=== PATIENT | female | born 1950 | race Caucasian/White ===

== ENCOUNTER 2018-04-11 13:21 | Outpatient (CLI) | payer BC ==
[2018-04-11 13:39] LABS: BASOPHILS # (AUTO) 0.1 10^3/uL (0.0-0.1); BASOPHILS % (AUTO) 0.9 %; EOSINOPHILS # (AUTO) 0.1 10^3/uL (0.0-0.7); EOSINOPHILS % (AUTO) 1.3 %; LYMPHOCYTES # (AUTO) 1.8 10^3/uL (1.5-3.5); LYMPHOCYTES % (AUTO) 22.2 %; MEAN CORPUSCULAR HEMOGLOBIN 31.5 pg (27.0-31.0); MEAN CORPUSCULAR HGB CONC 34.6 g/dL (32.0-36.0); MEAN CORPUSCULAR VOLUME 91.2 fL (81.0-99.0); MEAN PLATELET VOLUME 7.6 fL (7.9-10.8); MONOCYTES # (AUTO) 0.7 10^3/uL (0.0-1.0); MONOCYTES % (AUTO) 8.4 %; NEUTROPHILS # (AUTO) 5.6 10^3/uL (1.5-6.6); NEUTROPHILS % (AUTO) 67.2 %; PLT - PLATELET COUNT 271 10^3/uL (130-450); RED BLOOD COUNT 5.06 10^6/uL (4.20-5.40); RED CELL DISTRIBUTION WIDTH 13.5 % (12.0-15.0); WHITE BLOOD COUNT 8.3 x10^3/uL (4.8-10.8)
[2018-04-11 13:52] LABS: ALBUMIN 4.3 g/dL (3.2-5.5); ALBUMIN/GLOBULIN RATIO 1.2 (1.0-2.2); ALKALINE PHOSPHATASE 95 IU/L (42-121); ALT ALANINE AMINOTRANSFERASE 19 IU/L (10-60); AST ASPARTATE AMINOTRANSFERASE 23 IU/L (10-42); BILIRUBIN,TOTAL 0.7 mg/dL (0.2-1.0); BUN - BLOOD UREA NITROGEN 14 mg/dL (6-20); CALCIUM 8.8 mg/dL (8.5-10.3); CARBON DIOXIDE - CO2 25 mmol/L (21-32); CHLORIDE 96 mmol/L (101-111); CHOL/HDL RATIO 3.8 (<4.4); CHOLESTEROL 173 mg/dL; CREATININE 0.5 mg/dL (0.4-1.0); GFR - MDRD 122 (>89); GLUCOSE 124 mg/dL (70-100); HDL CHOLESTEROL 46 mg/dL; LDL CHOLESTEROL,CALCULATED 99 mg/dL; LDL/HDL RATIO 2.2 (<4.4); SODIUM 130 mmol/L (135-145); TOTAL PROTEIN 7.8 g/dL (6.7-8.2); VLDL CHOLESTEROL 28 mg/dL
== END 2018-04-11 13:22 | disposition home or self-care (01) ==
LOC: LAB 13:21
PROVIDERS: ATTEND Specialist
DX: Z12.11 Encounter for screening for malignant neoplasm of colon (principal); Z13.6 Encounter for screening for cardiovascular disorders; Z72.89 Other problems related to lifestyle
CPT/HCPCS: 36415; 80053; 80061; 83721; 85025; 87902

== ENCOUNTER 2018-04-13 06:18 | Day surgery (SDC) | payer BC ==
[2018-04-13] MEDS ORDERED: PHENYLEPHRINE 2.5% OPHTH 2 ML DROPS ONE (06:25)
[2018-04-13] MEDS ORDERED: KETOROLAC 0.45% OPHTH DROPS ONE (06:25)
[2018-04-13] MEDS ORDERED: PROPARACAINE 0.5% OPHTH DROPS 15 ML ONE (06:26)
[2018-04-13] MEDS ORDERED: CYCLOPENTOLATE 1% OPHTH DROPS 2 ML ONE (06:26)
[2018-04-13] MEDS ORDERED: LACTATED RINGERS 1,000 ML IV ONE (06:34)
[2018-04-13] MEDS ORDERED: PHENYLEPHRINE 2.5% OPHTH 2 ML DROPS RIGHTEYE ONE (06:35)
[2018-04-13] MEDS ORDERED: CYCLOPENTOLATE 1% OPHTH DROPS 2 ML RIGHTEYE ONE (06:35)
[2018-04-13] MEDS ORDERED: PROPARACAINE 0.5% OPHTH DROPS 15 ML RIGHTEYE ONE ×2 (06:35→07:34)
[2018-04-13] MEDS ORDERED: KETOROLAC 0.45% OPHTH DROPS RIGHTEYE ONE (06:35)
--- NOTE | 2018-04-13 07:06 | ANESTHESIA ---
Pre-Anesthesia VS, & Labs - Diagnosis Right eye senile cataract - Procedure Right eye extraction of cataract with IOL implant Vital Signs: Temp Pulse Resp BP Pulse Ox 36.3 C L 82 16 132/64 H 93 04/13/18 06:35 04/13/18 06:35 04/13/18 06:35 04/13/18 06:35 04/13/18 06:35 Height 5 ft 3 in Weight (kg) 77.3 kg - NPO >8 hours - Is Patient ?: No - Lab Results Current Lab Results: Laboratory Tests 04/13/18 06:54: POC Whole Bld Glucose 150 H Home Medications and Allergies Home Medications: Ambulatory Orders Aspirin 81 mg PO DAILY 04/13/18 Escitalopram Oxalate 20 mg PO DAILY 04/13/18 Levalbuterol [Xopenex] 200 puffs INH PRN PRN 04/13/18 Losartan Potassium 100 mg PO DAILY 04/13/18 Lovastatin 10 mg PO DAILY 04/13/18 hydroCHLOROthiazide [Hydrochlorothiazide] 25 mg PO DAILY 04/13/18 metFORMIN [Glucophage] 500 mg PO DAILY 04/13/18 Aspirin 81 mg PO DAILY 04/13/18 Escitalopram Oxalate 20 mg PO DAILY 04/13/18 Levalbuterol [Xopenex] 200 puffs INH PRN PRN 04/13/18 Losartan Potassium 100 mg PO DAILY 04/13/18 Lovastatin 10 mg PO DAILY 04/13/18 hydroCHLOROthiazide [Hydrochlorothiazide] 25 mg PO DAILY 04/13/18 metFORMIN [Glucophage] 500 mg PO DAILY 04/13/18 Allergies/Adverse Reactions: Allergies Allergy/AdvReac Type Severity Reaction Status Date / Time nitrofurantoin Allergy Rash Verified 04/13/18 06:45 [From Macrodantin] tiotropium Allergy Rash Verified 04/13/18 06:45 [From Spiriva with HandiHaler] albuterol Allergy Dizziness Uncoded 04/13/18 06:45 Anes History & Medical History - Anesthetic History Anesthesia Complications: reports: No previous complications - Medical History Cardiovascular: reports: Hypertension, High cholesterol, Other Pulmonary: reports: COPD, Other (Uses oxygen at night) Gastrointestinal: reports: GERD (controlled with medication) Urinary: reports: None Neuro: reports: None Musculoskeletal: reports: Osteoarthritis Endocrine/Autoimmune: reports: Type 2 diabetes Blood Disorders: reports: None Skin: reports: Rosacea Smoking Status: Current every day smoker (1pk/day for 50 years) Psychosocial: reports: Depression, Anxiety, Alcohol (1-2 drinks per day) - Surgical History Gynecologic: Hysterectomy Exam General: Alert, Oriented x3, Cooperative, No acute distress Mouth Openin Fingerbreadth Neck Mobility: Normal Mallampati classification: II Thyromental Distance: 4-6 cm Respiratory: Lungs clear, Normal breath sounds, No respiratory distress, No accessory muscle use Cardiovascular: Regular rate, Normal S1, Normal S2, No murmurs Mental/Cognitive Status: Alert/Oriented X3, Normal for patient Cognitive Status: Within normal limits Plan Anesthesia Type: MAC Consent for Procedure(s) Verified and Reviewed: Yes Code Status: Attempt Resuscitation ASA classification: 3-Severe systemic disease Is this case an emergency?: No
[2018-04-13] MEDS ORDERED: EPINEPHrine 1 MG/ML AMP ONE (07:10)
[2018-04-13] MEDS ORDERED: TIMOLOL 0.5% OPHTH DROPS ONE (07:11)
[2018-04-13] MEDS ORDERED: TRIAMCIN/MOXIFLOX OPHTHALMIC 0.6 ML VIAL IO ONE (07:11)
[2018-04-13] MEDS ORDERED: BRIMONIDINE 0.2% OPHTH DROPS 5 ML ONE (07:11)
[2018-04-13] MEDS ORDERED: BSS/LIDOCAINE/EPINEPHRINE 1 ML SYRINGE ONE (07:12)
[2018-04-13] MEDS ORDERED: VANCOMYCIN OPHTHALMI 8MG/0.8ML 8 MG/0.8 ML SYRINGE IO ONE (07:12)
[2018-04-13] MEDS ORDERED: EPINEPHrine 1 MG/ML AMP IVP ONE (07:33)
[2018-04-13] MEDS ORDERED: BRIMONIDINE 0.2% OPHTH DROPS 5 ML OPTH ONE (07:33)
[2018-04-13] MEDS ORDERED: TIMOLOL 0.5% OPHTH DROPS OPTH ONE (07:33)
[2018-04-13] MEDS ORDERED: CHONDR SULF/HYALURONATE SYRINGE IO ONE (07:33)
[2018-04-13] MEDS ORDERED: BSS/LIDOCAINE/EPINEPHRINE 1 ML SYRINGE IO ONE (07:34)
[2018-04-13] MEDS ORDERED: MIDAZOLAM 2 MG/2 ML VIAL IVP ONE (07:45)
[2018-04-13] MEDS ORDERED: KETOROLAC 15 MG/ML VIAL ONE (08:08)
[2018-04-13 08:28] VITALS: BP 124/72
--- NOTE | 2018-04-13 09:45 | OPERATIVE REPORT ---
DATE OF SERVICE: 04/13/2018 Physician: Kamron Ferrari MD PREOPERATIVE DIAGNOSIS: Visually significant cataract, right eye. This was her first cataract surgery. POSTOPERATIVE DIAGNOSIS: Visually significant cataract, right eye. PROCEDURE: Phacoemulsification with posterior chamber intraocular lens implant, right eye, with laser assist. SURGEON: Dr. Kamron Ferrari. ANESTHESIA: Monitored anesthesia care. COMPLICATIONS: None. OPERATIVE INDICATIONS: This is a 68-year-old woman with progressive vision loss in the right eye due to a 3+ nuclear sclerotic cataract. Best corrected visual acuity was 20/100 with glare count fingers vision at 4 feet in the right eye. Indications for surgery were overall decrease in vision, difficulty seeing words on a computer screen, difficulty reading, difficulty seeing words, closed captions or game scores on TV, difficulty seeing street signs, difficulty driving in low light or at night, difficulty driving at night because of the headlights from other vehicles and/or street lights, and difficulty with glare or bright lights in any situation. She was consented at length concerning risks and benefits of cataract surgery, after which she expressed a desire to proceed with surgery. OPERATIVE PROCEDURE: Patient was taken into OR #3 and placed under monitored anesthesia care. A surgical timeout was conducted confirming correct patient, correct procedure, and correct surgical site. She was placed on the LenSx laser and her eye docked to the laser interface. The laser performed a capsulotomy, lens softening, phaco wounds and arcuate keratotomy incisions. She was then moved to the operating microscope, given topical anesthesia, then prepped and draped in the usual sterile fashion. The eye was entered at the 12 and 9 o'clock positions. Intracameral Shugarcaine was injected into the anterior chamber, followed by Viscoat. The capsulorrhexis flap created by the LenSx laser was removed from the anterior chamber. The nucleus was hydrodissected and phacoemulsified. The cortex was evacuated using automated infusion and aspiration. Provisc was injected in the capsular bag, and a 22.0 diopter intraocular lens inserted in the bag. Approximately 0.8 mL of a mixture of triamcinolone, moxifloxacin and vancomycin was injected subconjunctivally in the superior quadrant for infection and inflammation prophylaxis. I/A was used to evacuate the viscoelastic materials. The eye was inflated to physiologic pressure using a balanced salt solution and found to be watertight. Patient was taken from the operating room in good condition and postop instructions. TD: 04/13/2018 08:50 MICAELA
== END 2018-04-13 06:19 | disposition home or self-care (01) ==
LOC: SDS 06:18
PROVIDERS: ATTEND Ophthalmology
PROC: 08RJ3JZ Replacement of Right Lens with Synthetic Substitute, Percutaneous Approach (ICD-10-PCS; principal; 2018-04-13 07:30)
DX: H25.11 Age-related nuclear cataract, right eye (principal); J44.9 Chronic obstructive pulmonary disease, unspecified; I10 Essential (primary) hypertension; G47.33 Obstructive sleep apnea (adult) (pediatric); Z99.81 Dependence on supplemental oxygen; E78.00 Pure hypercholesterolemia, unspecified; K21.9 Gastro-esophageal reflux disease without esophagitis; E11.9 Type 2 diabetes mellitus without complications; F17.210 Nicotine dependence, cigarettes, uncomplicated; F41.9 Anxiety disorder, unspecified; F32.9 Major depressive disorder, single episode, unspecified
CPT/HCPCS: 66984; A9270; J3490; J7120; V2632

== ENCOUNTER 2018-10-05 08:05 | Day surgery (SDC) | payer BC ==
[~2018-10-05 08:05] MED LIST: BRIMONIDINE 0.2% OPHTH DROPS 5 ML ONE; BSS/LIDOCAINE/EPINEPHRINE 1 ML SYRINGE ONE; CYCLOPENTOLATE 1% OPHTH DROPS 2 ML ONE; KETOROLAC 0.45% OPHTH DROPS ONE; PHENYLEPHRINE 2.5% OPHTH 2 ML DROPS ONE; PROPARACAINE 0.5% OPHTH DROPS 15 ML ONE; TIMOLOL 0.5% OPHTH DROPS ONE; TRIAMCIN/MOXIFLOX OPHTHALMIC 0.6 ML VIAL IO ONE; VANCOMYCIN OPHTHALMI 8MG/0.8ML 8 MG/0.8 ML SYRINGE IO ONE
[2018-10-05] MEDS ORDERED: PHENYLEPHRINE 2.5% OPHTH 2 ML DROPS LEFTEYE ONE (08:15)
[2018-10-05] MEDS ORDERED: KETOROLAC 0.45% OPHTH DROPS LEFTEYE ONE (08:15)
[2018-10-05] MEDS ORDERED: PROPARACAINE 0.5% OPHTH DROPS 15 ML LEFTEYE ONE ×2 (08:15→08:45)
[2018-10-05] MEDS ORDERED: CYCLOPENTOLATE 1% OPHTH DROPS 2 ML LEFTEYE ONE (08:15)
[2018-10-05] MEDS ORDERED: LACTATED RINGERS 500 ML IV ONE (08:20)
--- NOTE | 2018-10-05 08:30 | ANESTHESIA ---
Pre-Anesthesia VS, & Labs - Diagnosis left nuclear sclerotic cataract - Procedure left cataract extraction with IOL Vital Signs: Temp Pulse Resp BP Pulse Ox 36.9 C 97 18 155/70 H 92 10/05/18 08:12 10/05/18 08:12 10/05/18 08:12 10/05/18 08:12 10/05/18 08:12 Height 5 ft 3 in Weight (kg) 78.5 kg - NPO >8 hours - Is Patient ?: No Home Medications and Allergies Home Medications: Ambulatory Orders ALPRAZolam [Alprazolam] 0.5 mg PO DAILY 10/04/18 Aclidinium [place] [Tudorza Pressair] 400 mcg IH DAILY 10/04/18 Omeprazole 40 mg PO DAILY 10/04/18 Aspirin 81 mg PO DAILY 04/13/18 Escitalopram Oxalate 20 mg PO DAILY 04/13/18 Levalbuterol [Xopenex] 200 puffs INH PRN PRN 04/13/18 Losartan Potassium 100 mg PO DAILY 04/13/18 Lovastatin 10 mg PO DAILY 04/13/18 hydroCHLOROthiazide [Hydrochlorothiazide] 25 mg PO DAILY 04/13/18 metFORMIN [Glucophage] 500 mg PO DAILY 04/13/18 ALPRAZolam [Alprazolam] 0.5 mg PO DAILY 10/04/18 Aclidinium [place] [Tudorza Pressair] 400 mcg IH DAILY 10/04/18 Omeprazole 40 mg PO DAILY 10/04/18 Allergies/Adverse Reactions: Allergies Allergy/AdvReac Type Severity Reaction Status Date / Time nitrofurantoin Allergy Rash Verified 04/13/18 06:45 [From Macrodantin] tiotropium Allergy Rash Verified 04/13/18 06:45 [From Spiriva with HandiHaler] albuterol Allergy Dizziness Uncoded 04/13/18 06:45 Anes History & Medical History - Anesthetic History Anesthesia Complications: reports: No previous complications - Medical History Cardiovascular: reports: Hypertension, High cholesterol, Other Pulmonary: reports: COPD, Other Gastrointestinal: reports: GERD Urinary: reports: None Neuro: reports: None Musculoskeletal: reports: Osteoarthritis Endocrine/Autoimmune: reports: Type 2 diabetes Blood Disorders: reports: None Skin: reports: Rosacea Smoking Status: Current every day smoker (1pk/day for 50 years) - Surgical History Gynecologic: Hysterectomy Exam General: Alert Dental: WNL, Partials Upper Mouth Opening: Greater than 4 Fingerbreadths Mallampati classification: II Thyromental Distance: greater than 6 cm Plan Anesthesia Type: General Consent for Procedure(s) Verified and Reviewed: Yes Code Status: Attempt Resuscitation ASA classification: 2-Mild systemic disease Is this case an emergency?: No
[2018-10-05] MEDS ORDERED: BRIMONIDINE 0.2% OPHTH DROPS 5 ML OPTH ONE (08:55)
[2018-10-05] MEDS ORDERED: CHONDR SULF/HYALURONATE SYRINGE IO ONE (08:55)
[2018-10-05] MEDS ORDERED: EPINEPHrine 1 MG/ML AMP IVP ONE (08:55)
[2018-10-05] MEDS ORDERED: TIMOLOL 0.5% OPHTH DROPS OPTH ONE (08:56)
[2018-10-05] MEDS ORDERED: BSS/LIDOCAINE/EPINEPHRINE 1 ML SYRINGE IO ONE ×2 (08:56)
[2018-10-05] MEDS ORDERED: VANCOMYCIN OPHTHALMI 8MG/0.8ML 8 MG/0.8 ML SYRINGE IO ONE (08:57)
[2018-10-05] MEDS ORDERED: TRIAMCIN/MOXIFLOX OPHTHALMIC 0.6 ML VIAL IO ONE ×2 (08:58)
[2018-10-05] MEDS ORDERED: MIDAZOLAM 2 MG/2 ML VIAL IVP ONE (09:00)
[2018-10-05] MEDS ORDERED: LIDOCAINE-MPF 2% 5 ML VIAL IM ONE (09:00)
[2018-10-05] MEDS ORDERED: fentaNYL 100 MCG/2 ML VIAL IVP ONE (09:00)
[2018-10-05 09:25] VITALS: BP 128/57
--- NOTE | 2018-10-05 11:21 | OPERATIVE REPORT ---
DATE OF SERVICE: 10/05/2018 Physician: Kamron Ferrari MD PREOPERATIVE DIAGNOSIS: Visually significant cataract, left eye. Cataract surgery was performed on the right eye on 04/13/2018. POSTOPERATIVE DIAGNOSIS: Visually significant cataract, left eye. Cataract surgery was performed on the right eye on 04/13/2018. PROCEDURE: Phacoemulsification with posterior chamber intraocular lens implant, left eye. SURGEON: Kamron Ferrari MD ANESTHESIA: Monitored anesthesia care. COMPLICATIONS: None. OPERATIVE INDICATIONS: This is a 68-year-old woman with progressive vision loss in the left eye due to 3+ nuclear sclerotic cataract. Best corrected visual acuity was 20/40, with glare to 20/60 in the left eye. Indications for surgery are overall decrease in vision, difficulty driving in low light o r at night, difficulty driving at night because of headlights from other vehicles, and difficulty wit h glare or bright lights in any situation. She was consented at length concerning the risks and bene fits of cataract surgery, after which she expressed a desire to proceed with surgery. OPERATIVE PROCEDURE: The patient was taken to OR #3 and placed under monitored anesthesia care. A s urgical timeout was conducted confirming the correct patient, correct procedure, and correct surgical site. She was given topical anesthesia, then prepped and draped in the usual sterile fashion. The eye was entered at the 6 and 3 o'clock positions. Intracameral Shugarcaine was injected into the ant erior chamber, followed by Viscoat. A continuous-tear curvilinear capsulorrhexis was performed. The nucleus was hydrodissected and phacoemulsified. The cortex was evacuated using automated infusion a nd aspiration. Provisc was injected into the capsular bag, and a 21.0 diopter intraocular lens was i nserted into the bag. Approximately 0.8 mL mixture of triamcinolone, moxifloxacin, and vancomycin wa s injected subconjunctivally in the superior quadrant for infection and inflammation prophylaxis. I and A was used to evacuate the viscoelastic materials. The eye was inflated to physiologic pressure using balanced salt solution and found to be watertight. The patient was taken from the operating ro om in good condition and given postoperative instructions. TD: 10/05/2018 09:19
== END 2018-10-05 08:06 | disposition home or self-care (01) ==
LOC: SDS 08:05
PROVIDERS: ATTEND Ophthalmology
PROC: 08RK3JZ Replacement of Left Lens with Synthetic Substitute, Percutaneous Approach (ICD-10-PCS; principal; 2018-10-05 09:00)
DX: H25.12 Age-related nuclear cataract, left eye (principal); J44.9 Chronic obstructive pulmonary disease, unspecified; I10 Essential (primary) hypertension; E11.9 Type 2 diabetes mellitus without complications; F17.210 Nicotine dependence, cigarettes, uncomplicated
CPT/HCPCS: 66984; A9270; J3490; V2632

== ENCOUNTER 2019-05-29 12:42 | Outpatient (CLI) | payer BC ==
--- NOTE | 2019-05-31 09:17 | DEXA Report ---
Reason: SCREEN FOR OSTEPOROSIS, POSTMENOPAUSAL Procedure Date: 05/29/2019 Accession Number: [id number] / [id number] Procedure: DEX - Dexa Spine and/or Hip CPT Code: Final Report FULL RESULT: EXAM: Dexa Spine and/or Hip DATE: 05/29/2019 1:04 PM CLINICAL HISTORY: SCREEN FOR OSTEPOROSIS, POSTMENOPAUSAL TECHNIQUE: Dual energy x-ray absorptiometry (DXA) was performed on a Nagi System. Regions measured are the AP Spine, femoral neck, and if needed forearm. COMPARISON: None. In accordance with the International Society for Clinical Densitometry (ISCD) guidelines, data from previous exams may be reanalyzed using current recommendations and techniques. This is done to allow a more accurate basis for comparison with the current study. FINDINGS: The data for the lumbar spine is as follows: BMD (g/cm/cm) T-SCORE Z-SCORE REGION L1 0.850 -2.3 -1.2 L2 0.990 -1.7 -0.6 L3 0.986 -1.8 -0.7 L4 1.130 -0.6 0.5 TOTAL 0.997 -1.5 -0.4 NOTE: All evaluable vertebrae are used for classification The data for the hip is as follows: BMD (g/cm/cm) T-SCORE Z-SCORE REGION Neck 0.769 -1.9 -0.6 TOTAL 0.808 -1.6 -0.5 NOTE: The femoral neck or total proximal femur, whichever is lowest, is used for classification. IMPRESSION: THE WHO CLASSIFICATION BASED ON THE INTERNATIONAL REFERENCE STANDARD IS OSTEOPENIA. THE FRACTURE RISK IS INCREASED. RECOMMENDATION: Patients with diagnosis of osteoporosis or osteopenia should have regular bone mineral density assessment. For those eligible for Medicare, routine testing is allowed once every 2 years. Testing frequency can be increased for patients who have rapidly progressing disease or for those who are receiving medical therapy to restore bone mass. COMMENT: World Health Organization (WHO) definitions for osteoporosis and osteopenia: NORMAL BMD: T-score at -1.0 or higher, fracture risk is low OSTEOPENIA BMD: T-score between -1.0 and -2.5, fracture risk is increased. OSTEOPOROSIS BMD: T-score at -2.5 or lower, fracture risk is high. National Osteoporosis Foundation recommends: 1. Obtain adequate dietary calcium (at least 1200 mg per day) and vitamin D (400-800 international units per day). 2. Participate, as appropriate, in regular weightbearing and muscle-strengthening exercise. 3. Avoid tobacco use and reduce alcohol and caffeine intake. 4. For more detailed information see the website at www.NOF.org.
== END 2019-05-29 12:43 | disposition home or self-care (01) ==
LOC: DI 12:42
PROVIDERS: ATTEND Internal Medicine
DX: Z13.820 Encounter for screening for osteoporosis (principal); M85.89 Other specified disorders of bone density and structure, multiple sites; N95.8 Other specified menopausal and perimenopausal disorders
CPT/HCPCS: 77080

== ENCOUNTER 2019-05-29 12:43 | Outpatient (CLI) | payer BC ==
--- NOTE | 2019-05-31 09:06 | Mammography Report ---
Reason: ROUTINE MAMMO Procedure Date: 05/29/2019 Accession Number: [id number] / [id number] Procedure: WEST - Screening Mammo w/Celso CPT Code: Final Report FULL RESULT: EXAM: Screening Mammo w/Celso DATE: 05/29/2019 1:33 PM CLINICAL HISTORY: Screening encounter. TECHNIQUE: (B) - Bilateral CC and MLO views were obtained. COMPARISON: 04/05/2017 through 10/14/2009. PARENCHYMAL PATTERN: (A) - The breast(s) demonstrate(s) scattered fibroglandular densities. FINDINGS: There are no suspicious masses, calcifications, or areas of distortion. IMPRESSION: Negative examination. BI-RADS category 1. RECOMMENDATION: (ANNUAL) - Recommend routine annual screening mammography. BI-RADS CATEGORY: (1) - Negative. STANDARD QUALIFYING STATEMENTS: 1. This examination was not reviewed with the aid of Computer-Aided Detection (CAD). 2. A negative or benign imaging report should not preclude biopsy if clinically suspicious findings are present. 3. Dense breasts may obscure an underlying neoplasm. 4. This examination was reviewed with the aid of 3D breast imaging (tomosynthesis).
== END 2019-05-29 12:44 | disposition home or self-care (01) ==
LOC: DI 12:43
PROVIDERS: ATTEND Internal Medicine
DX: Z12.31 Encounter for screening mammogram for malignant neoplasm of breast (principal)
CPT/HCPCS: 77063; 77067

== ENCOUNTER 2019-08-22 17:02 | Outpatient (CLI) | payer BC | END 2019-08-22 17:03 | disposition home or self-care (01) | LOC: COV 17:02 | PROVIDERS: ATTEND Family Medicine | DX: R50.9 Fever, unspecified (principal) ==

== ENCOUNTER 2019-08-26 07:49 | Inpatient (IN) | payer MEDICARE, BC ==
[2019-08-26] MEDS ORDERED: SODIUM CHLORIDE 0.9% 1,000 ML IV ONE ×3 (08:17→09:42)
[2019-08-26] MEDS ORDERED: LEVALBUTEROL 1.25 MG/3 ML NEB INH ONE (08:19)
--- NOTE | 2019-08-26 08:21 | ED Physician Documentation ---
PD HPI DYSPNEA - Stated complaint Stated Complaint: C+ SHORTNESS OF AIR - History obtained from History obtained from: Patient - History of Present Illness Timing - onset: How many days ago (5-6) Timing - onset during: Rest, Light activity (Initially just having dyspnea with light activity. She has become more consistently short of breath last couple of days. Last night into today she states "I feel like I am drowning". She does have history of COPD and uses rescue inhaler at times but no consistent beta agonists. She is allergic to albuterol that gives her jitteriness. She was tested positive for coded and then been at home. She typically uses oxygen just at night at 2 L. She has been on it consistently the last day and a half. Her oximetry at home is baseline 93 to 95% and had been recently in the upper 80s. This morning she noted it to be in the upper 70s.) Timing - duration: Days Timing - details: Gradual onset, Still present (worse the past day) Inciting event(s): URI, Other (she is still a smoker). No: Out of meds Improved by: O2, Rest. No: Inhaler/neb Worsened by: Exertion, Coughing Associated symptoms: Fever, Cough, Wheezing. No: Hemoptysis, Bilateral edema Similar symptoms before: Diagnosis (COPD) Recently seen: Clinic Review of Systems Constitutional: reports: Fever, Chills, Myalgias Nose: reports: Congestion. denies: Rhinorrhea / runny nose Throat: denies: Sore throat Cardiac: reports: Pedal edema. denies: Chest pain / pressure, Palpitations, Calf pain Respiratory: reports: Dyspnea, Cough, Wheezing GI: reports: Nausea (poor oral intake for few days). 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 - Present Medications Home Medications: Ambulatory Orders Medication Instructions Recorded Confirmed Aspirin 81 mg PO DAILY 04/13/18 08/26/19 Escitalopram Oxalate 20 mg PO DAILY 04/13/18 08/26/19 Levalbuterol [Xopenex] 200 puffs INH PRN PRN 04/13/18 08/26/19 Losartan Potassium 100 mg PO DAILY 04/13/18 08/26/19 Lovastatin 10 mg PO DAILY 04/13/18 08/26/19 hydroCHLOROthiazide 25 mg PO DAILY 04/13/18 08/26/19 [Hydrochlorothiazide] metFORMIN [Glucophage] 500 mg PO DAILY 04/13/18 08/26/19 ALPRAZolam [Alprazolam] 0.5 mg PO DAILY 10/04/18 08/26/19 Aclidinium [place] [Tudorza 400 mcg IH DAILY 10/04/18 08/26/19 Pressair] Omeprazole 40 mg PO DAILY 10/04/18 08/26/19 - Allergies Allergies/Adverse Reactions: Allergies Allergy/AdvReac Type Severity Reaction Status Date / Time nitrofurantoin Allergy Rash Verified 08/26/19 08:53 [From Macrodantin] tiotropium Allergy Rash Verified 08/26/19 08:53 [From Spiriva with HandiHaler] albuterol Allergy Dizziness Uncoded 08/26/19 08:53 - Living Situation Living Situation: reports: With spouse/s.o. Living Arrangement: reports: At home - Social History Smoking Status: Current every day smoker (1pk/day for 50 years) Does the pt drink ETOH?: No Does the pt have substance abuse?: No - POLST Patient has POLST: Yes POLST Status: Full Code PD ED PE NORMAL - Vitals Vital signs reviewed: Yes - General General: Alert and oriented X 3, Well developed/nourished, Other (She appears in distress with labored breathing and tachypnea. Oxygenation is low in the 79%. Blood pressure is also low at 82 systolic) - HEENT HEENT: Pharynx benign. No: Moist mucous membranes - Neck Neck: Supple, no meningeal sign, No JVD, No bruit - Cardiac Cardiac: No murmur - Respiratory Respiratory: Other (She has prolonged expiratory phase with accessory muscle use and partial sentence dyspnea. She does appear a bit anxious.). No: Clear bilaterally (Diffuse wheezing and prolonged expiratory phase. There are some coarse sounds diffusely as well.) - Abdomen Abdomen: Soft, Non tender - Derm Derm: Normal color, Warm and dry - Extremities Extremities: No deformity, No tenderness to palpate - Neuro Neuro: Alert and oriented X 3, No motor deficit, Normal speech Eye Opening: Spontaneous Motor: Obeys Commands Verbal: Oriented GCS Score: 15 Results - Vitals Vitals: Vital Signs - 24 hr 08/26/19 08/26/19 08/26/19 07:55 08:17 08:30 Temperature 36.6 C Heart Rate 82 114 H 113 H Respiratory 32 H 24 25 H Rate Blood Pressure 90/48 L 71/52 L 88/50 L O2 Saturation 76 L 82 L 82 L 08/26/19 08/26/19 08/26/19 08:47 08:54 09:00 Temperature Heart Rate 113 H 114 H 111 H Respiratory 25 H 25 H 24 Rate Blood Pressure 80/49 L 91/49 L 95/67 O2 Saturation 86 L 86 L 88 L 08/26/19 08/26/19 08/26/19 09:15 09:30 09:44 Temperature Heart Rate 105 H 90 88 Respiratory 11 L 20 17 Rate Blood Pressure 89/75 L 47/33 L 53/37 L O2 Saturation 90 L 79 L 83 L 08/26/19 08/26/19 08/26/19 09:52 09:58 10:03 Temperature Heart Rate 94 99 102 H Respiratory 18 20 Rate Blood Pressure 65/38 L 57/43 L O2 Saturation 88 L 88 L Oxygen O2 Source Mechanical ventilator Oxygen Flow Rate 15 - Labs Labs: Laboratory Tests 08/26/19 08/26/19 08/26/19 08:15 08:15 08:15 WBC 5.6 RBC 4.99 Hgb 16.1 H Hct 45.4 MCV 91.0 MCH 32.3 H MCHC 35.5 RDW 13.2 Plt Count 295 MPV 10.5 Neut # (Auto) Not Reportable Lymph # (Auto) Not Reportable [place] # (Auto) Not Reportable Eos # (Auto) Not Reportable Baso # (Auto) Not Reportable Absolute Nucleated RBC Not Reportable Total Counted 100 Band Neuts % (Manual) 40 H Abnorm Lymph % (Manual) 0 Metamyelocytes % 6 H Myelocytes % 5 H Nucleated RBC % Not Reportable Neutrophils # (Manual) 4.6 Lymphocytes # (Manual) 0.3 L Monocytes # (Manual) 0.1 Eosinophils # (Manual) 0.0 Basophils # (Manual) 0.0 Differential Comment MANUAL DIFFERENTIAL Manual Slide Review Indicated WBC Morphology 2+ TOXIC GRANULATION Platelet Estimate NORMAL (130-450,000) Platelet Morphology NORMAL APPEARANCE RBC Morph Micro Appear NORMAL APPEARANCE D-Dimer > 1050.0 H Sodium 131 L Potassium 3.2 L Chloride 92 L Carbon Dioxide 22 Anion Gap 17.0 H BUN 99 H* Creatinine 2.9 H Estimated GFR (MDRD) 16 L Glucose 103 H Calcium 8.5 Magnesium 2.3 Total Bilirubin 0.9 AST 120 H ALT 53 Alkaline Phosphatase 60 B-Natriuretic Peptide Total Protein 7.6 Albumin 3.1 L Globulin 4.5 H Albumin/Globulin Ratio 0.7 L Lipase 21 L 08/26/19 08:15 WBC RBC Hgb Hct MCV MCH MCHC RDW Plt Count MPV Neut # (Auto) Lymph # (Auto) [place] # (Auto) Eos # (Auto) Baso # (Auto) Absolute Nucleated RBC Total Counted Band Neuts % (Manual) Abnorm Lymph % (Manual) Metamyelocytes % Myelocytes % Nucleated RBC % Neutrophils # (Manual) Lymphocytes # (Manual) Monocytes # (Manual) Eosinophils # (Manual) Basophils # (Manual) Differential Comment Manual Slide Review WBC Morphology Platelet Estimate Platelet Morphology RBC Morph Micro Appear D-Dimer Sodium Potassium Chloride Carbon Dioxide Anion Gap BUN Creatinine Estimated GFR (MDRD) Glucose Calcium Magnesium Total Bilirubin AST ALT Alkaline Phosphatase B-Natriuretic Peptide 115 H Total Protein Albumin Globulin Albumin/Globulin Ratio Lipase - Rads (name of study) chest xray Radiology: Prelim report reviewed, See rad report Procedures - Intubation Provider: Emergency physician Medications: Propofol Blade: Glidescope Tube: Size-enter number (7.5), Cuffed, Marked at teeth-enter cm (23) Confirmation: Direct visualization, Bilateral breath sounds, No abdominal breath sound, End tidal CO2, Pulse ox, Chest xray Complications: No compications, Other (There were a lot of secretions initially up through the tube and her oxygenation remained in the mid 80s pending suctioning and improved bagging. Her oxygenation increased to 89 to 90% and that/a reasonable level at this point. Her blood pressure is slowly improving so we are not able to increase the PEEP much just yet. As we improve her blood pressure will be able to increase the PEEP and hopefully improve oxygenation slightly with a target goal of 88-92.) PD MEDICAL DECISION MAKING - ED course Complexity details: considered differential (She is covered positive. She does have history of COPD and has significant wheezing at this time. Oxygenation is low on blood pressures as well. 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 I did verbally talk with anesthesia will place a central line but prefer to do it in the unit.) - Critical Care Time(min): 60 Time Includes: Direct patient care, Coordinate care, Medical consult Data interpretation: Labs, Pulse ox, CXR Procedures included in critical care time: Peripheral IV Departure - Departure Disposition: 66 [facility] DC/Xfer Clinical Impression: COVID-19, COPD exacerbation, Hypoxia Pneumonia Qualifiers: Pneumonia type: due to unspecified organism Laterality: bilateral Lung location: unspecified part of lung Qualified Code(s): J18.9 - Pneumonia, unspecified organism Hypotension Qualifiers: Hypotension type: unspecified hypotension type Qualified Code(s): I95.9 - Hypotension, unspecified Condition: Critical Record reviewed to determine appropriate education?: Yes
[2019-08-26 08:38] LABS: BASOPHILS % (AUTO) 1.6 %; EOSINOPHILS % (AUTO) 0.2 %; HGB - HEMOGLOBIN 16.1 g/dL (12.0-16.0); LYMPHOCYTES % (AUTO) 3.6 %; MEAN CORPUSCULAR HEMOGLOBIN 32.3 pg (27.0-31.0); MEAN CORPUSCULAR HGB CONC 35.5 g/dL (32.0-36.0); MEAN PLATELET VOLUME 10.5 fL (7.9-10.8); MONOCYTES % (AUTO) 1.6 %; PLT - PLATELET COUNT 295 10^3/uL (130-450); RED BLOOD COUNT 4.99 10^6/uL (4.20-5.40); RED CELL DISTRIBUTION WIDTH 13.2 % (12.0-15.0); WHITE BLOOD COUNT 5.6 x10^3/uL (4.8-10.8)
[2019-08-26] MEDS ORDERED: MORPHINE 2 MG/ML CARPUJECT IVP STA ×2 (08:39→09:45)
[2019-08-26] MEDS ORDERED: PROPOFOL 200 MG/20 ML VIAL IVP STA (09:07)
[2019-08-26] MEDS ORDERED: SUCCINYLCHOLINE 200 MG/10 ML VIAL IVP STA (09:09)
[2019-08-26 09:10] LABS: ABNORMAL LYMPHS % (MANUAL) 0 %
[2019-08-26] MEDS ORDERED: SUCCINYLCHOLINE 200 MG/10 ML VIAL ONE (09:10)
[2019-08-26] MEDS ORDERED: PROPOFOL 200 MG/20 ML VIAL IVP ONE (09:10)
[2019-08-26 09:11] LABS: BAND NEUTROPHILS % (MANUAL) 40 %; LYMPHOCYTES # (MANUAL) 0.3 10^3/uL (1.5-3.5); LYMPHOCYTES % (MANUAL) 5 %; METAMYELOCYTES % (MANUAL) 6 %; MONOCYTES # (MANUAL) 0.1 10^3/uL (0.0-1.0); MYELOCYTES % (MANUAL) 5 %; PLATELET MORPHOLOGY NORMAL APPEARANCE (NORMAL); RBC MORPHOLOGY (MULTIPLE) NORMAL APPEARANCE (NORMAL)
[2019-08-26] MEDS ORDERED: PROPOFOL 1000 MG/100 ML 0 ML IV ONE (09:11)
[2019-08-26 09:12] LABS: DIFFERENTIAL COMMENT MANUAL DIFFERENTIAL; PLATELET ESTIMATE, MANUAL NORMAL (130-450,000) (NORMAL)
--- NOTE | 2019-08-26 09:18 | XRAY Report ---
Reason: dyspnea/cough Procedure Date: 08/26/2019 Accession Number: [id number] / [id number] Procedure: XR - Chest 1 View X-Ray CPT Code: 05512 Final Report FULL RESULT: EXAM: CHEST RADIOGRAPHY EXAM DATE: 08/26/2019 08:48 AM. CLINICAL HISTORY: Dyspnea/cough. COMPARISON: CHEST 2 VIEW PA/LAT 09/26/2014 3:46 PM. TECHNIQUE: 1 view. FINDINGS: Lungs/Pleura: There are diffuse bilateral interstitial opacities and patchy airspace opacities, greatest at the bilateral lung bases. No pleural effusion or pneumothorax. Mediastinum: Within exam limitations, the cardiomediastinal contour is normal. Other: No acute osseous abnormality. IMPRESSION: Diffuse bilateral interstitial opacities and patchy airspace opacities, greatest at the bilateral lung bases. Findings may reflect pulmonary edema, pneumonia, or atypical/viral infection. RADIA
[2019-08-26 09:37] LABS: ALBUMIN 3.1 g/dL (3.2-5.5); ALBUMIN/GLOBULIN RATIO 0.7 (1.0-2.2); BILIRUBIN,TOTAL 0.9 mg/dL (0.2-1.0); CALCIUM 8.5 mg/dL (8.5-10.3); CREATININE 2.9 mg/dL (0.4-1.0); MAGNESIUM 2.3 mg/dL (1.7-2.8); TOTAL PROTEIN 7.6 g/dL (6.7-8.2)
[2019-08-26] MEDS ORDERED: DEXMEDETOMIDINE 400 MCG/100 ML 100 ML IV SCH ×2 (10:00→11:00)
--- NOTE | 2019-08-26 10:10 | XRAY Report ---
Reason: post intubation Procedure Date: 08/26/2019 Accession Number: [id number] / [id number] Procedure: XR - Chest 1 View X-Ray CPT Code: 18468 Final Report FULL RESULT: EXAM: CHEST RADIOGRAPHY EXAM DATE: 08/26/2019 09:53 AM. CLINICAL HISTORY: Post intubation. COMPARISON: CHEST 1 VIEW 08/26/2019 8:28 AM CHEST 2 VIEW PA/LAT 09/26/2014 3:46 PM. TECHNIQUE: 1 view. FINDINGS: Support apparatus: Endotracheal tube tip is 3.8 cm above the libby. Lungs/Pleura: There is similar appearance of diffuse bilateral interstitial opacities and patchy airspace opacities, greatest at the bilateral lung bases. No pleural effusion or pneumothorax. Mediastinum: Within exam limitations, the cardiomediastinal contour is normal. Other: No acute osseous abnormality. IMPRESSION: 1. Endotracheal tube tip is 3.8 cm above the libby. 2. Similar appearance of diffuse bilateral interstitial opacities and patchy airspace opacities, greatest at the bilateral lung bases. Findings may reflect pulmonary edema, pneumonia, or atypical/viral infection. RADIA
[2019-08-26 10:46] LABS: BILIRUBIN,URINE NEGATIVE (NEGATIVE); GLUCOSE, URINE (UA) NEGATIVE (NEGATIVE); KETONES,URINE (UA) NEGATIVE (NEGATIVE); LEUKOCYTE ESTERASE, URINE NEGATIVE (NEGATIVE); NITRITE,URINE POSITIVE (NEGATIVE); OCCULT BLOOD,URINE NEGATIVE (NEGATIVE); PROTEIN,URINE NEGATIVE (NEGATIVE); UROBILINOGEN,URINE 0.2 (NORMAL) E.U./dL (NORMAL)
[2019-08-26 10:47] LABS: ABG BASE EXCESS -9.6 mmol/L (-2.0-3.0); ABG HCO3 19.7 mmol/L (22.0-26.0); ABG PCO2 58 mmHg (34-45); ABG PO2 65 mmHg (80-100); ABG TCO2 21.5 MMOL/L (21.0-29.0); ALLEN TEST POSITIVE
[2019-08-26 10:48] LABS: ABG OXYGEN SATURATION 87 % (94-98); ABG PH 7.15 (7.35-7.45)
[2019-08-26] MEDS ORDERED: ONDANSETRON 4 MG/2 ML VIAL IVP PRN (10:48)
[2019-08-26 10:56] LABS: CLARITY,URINE SL. CLOUDY (CLEAR)
[2019-08-26] MEDS ORDERED: PROPOFOL 1000 MG/100 ML 100 ML IV SCH (11:00)
[2019-08-26] MEDS ORDERED: DEXTROSE 5%-0.9% NACL 1,000 ML IV SCH (11:00)
[2019-08-26 11:02] LABS: AMORPHOUS SEDIMENT,UR Moderate /LPF; BACTERIA,URINE Moderate /HPF (None Seen); RBC,URINE 0-5 /HPF (0-5); SQUAMOUS EPITHELIAL CELL,UR FEW Squamous (<= Few)
[2019-08-26] MEDS ORDERED: AZITHROMYCIN INJ 500 MG in SODIUM CHLORIDE 0.9% 250 ML IV SCH (11:02)
[2019-08-26] MEDS: MIDAZOLAM DRIP 50 MG/100 ML BAG IV SCH (11:52)
[2019-08-26] MEDS ORDERED: cefTRIAXone 2 GM in SODIUM CHLORIDE 0.9% MINIBAG 100 ML IV SCH (12:00)
[2019-08-26] MEDS ORDERED: SODIUM CHLORIDE 0.9% 500 ML IV ONE ×2 (12:06→13:41)
--- NOTE | 2019-08-26 12:17 | PHARMACY PROGRESS NOTE ---
- Best Possible Medication History Admit Date and Time: 08/26/19 1045 Processed by: Nursing Medication History completed: Yes As the person ultimately responsible for medication therapy, providers are able to order a medication from an existing home medication list in [facility] via the "Reconcile Routine" prior to Confirmation of that medication by business support professional. Such practice is discouraged except when the physician, in their clinical judgment, deems that a medical need exists for a medication without regard to previous use.
--- NOTE | 2019-08-26 13:33 | ANESTHESIA PROCEDURE NOTE ---
Anesth Central Line Template - Central Line Central Line Preparation: Unable to obtain consent (Emergency), Time out comp leted, Sterile prep and drape Central line location: Right Subclavian Central line type: Triple lumen Central line catheter tip site resides: Atrium, right Central line aftercare: Chlorhexidine disc placed, Secured, Placement confirmed, No pneumothorax, No complications, Bundle checklist complete, Pt tolerated well
--- NOTE | 2019-08-26 13:38 | CONSULTATION NOTE ---
Consultation Report: R Radial [place] placement upon request of Dr. Batista. Pt intubated, sedated, COVID +. Indication for vent management and hypotension requiring vasopressors. Site evaluated, with good collateral perfusion (had received previous ABG stick. Good pulses upon administration of central phenylephrine. R Radial a- line accessed on 2nd attempt w/20g Arrow kit. +flow, pulsatililty in line, +waveform. Secured in sterile fashion. Ceferino Cobb MD, [facility] [phone]
[2019-08-26] MEDS ORDERED: LEVALBUTEROL 1.25 MG/3 ML NEB INH SCH (14:00)
--- NOTE | 2019-08-26 14:02 | XRAY Report ---
Reason: Line Placement Procedure Date: 08/26/2019 Accession Number: [id number] / [id number] Procedure: XR - Chest for Line Placement CPT Code: Final Report FULL RESULT: EXAM: CHEST RADIOGRAPHY EXAM DATE: 08/26/2019 01:17 PM. CLINICAL HISTORY: Line Placement. COMPARISON: CHEST 1 VIEW 08/26/2019 9:34 AM. TECHNIQUE: 1 view. FINDINGS: Support apparatus: Endotracheal tube tip is 3.3 cm above the libby, similar to prior. There is a new right subclavian central venous catheter with tip in the lower third of the SVC. New enteric tube extends below the diaphragm and off the inferior margin of the image. Lungs/Pleura: There is similar appearance of diffuse bilateral interstitial opacities and patchy airspace opacities, greatest at the bilateral lung bases. No pleural effusion or pneumothorax. Mediastinum: Within exam limitations, the cardiomediastinal contour is normal. Other: No acute osseous abnormality. IMPRESSION: 1. New right subclavian central venous catheter tip is in the lower third of the SVC. 2. Similar appearance of diffuse bilateral interstitial opacities and patchy airspace opacities, greatest at the lung bases. Findings may represent pulmonary edema, pneumonia, or atypical/viral infection. RADIA
--- NOTE | 2019-08-26 14:03 | XRAY Report ---
Reason: NG placement Procedure Date: 08/26/2019 Accession Number: [id number] / [id number] Procedure: XR - Abdomen 1 View X-Ray CPT Code: 61876 Final Report FULL RESULT: EXAM: ABDOMEN RADIOGRAPHY EXAM DATE: 08/26/2019 01:19 PM. CLINICAL HISTORY: NG tube placement. COMPARISON: CHEST 1 VIEW 08/26/2019 9:34 AM. TECHNIQUE: 1 view. FINDINGS IMPRESSION: 1. Enteric tube tip and sidehole are in the body of the stomach. 2. Nonobstructive bowel gas pattern in the visualized upper abdomen. RADIA
[2019-08-26 14:10] LABS: VBG BASE EXCESS -9.1 mmol/L (-2 - +2); VBG PCO2 43.6 mmHg (41-51); VBG PH 7.234 (7.31-7.41); VBG PO2 53.3 mmHg (25-47); VBG TOTAL CO2 19.4 mmol/L (24-29)
[2019-08-26] MEDS: INSULIN REGULAR HUMAN 300 UNIT/3 ML VIAL SUBQ SCH ×2 (14:13→18:18)
[2019-08-26] MEDS: HYDROXYCHLOROQUINE 200 MG TABLET PO SCH ×2 (14:15→21:22)
[2019-08-26] MEDS ORDERED: MIN OIL/DIMETHICON/COCONUT OIL 92 GM TUBE TOP PRN (14:19)
[2019-08-26 14:46] LABS: CALCIUM 7.2 mg/dL (8.5-10.3)
[2019-08-26 14:47] LABS: CREATININE 2.9 mg/dL (0.4-1.0)
[2019-08-26 15:11] LABS: ABG PCO2 43 mmHg (34-45); ABG PO2 84 mmHg (80-100)
[2019-08-26 15:12] LABS: ABG BASE EXCESS -11.1 mmol/L (-2.0-3.0); ABG HCO3 16.5 mmol/L (22.0-26.0); ABG OXYGEN SATURATION 95 % (94-98); ABG TCO2 17.8 MMOL/L (21.0-29.0); ALLEN TEST POSITIVE
[2019-08-26] MEDS ORDERED: AMINOPHYLLINE 500 MG in SODIUM CHLORIDE 0.9% 480 ML IV ONE (15:30)
--- NOTE | 2019-08-26 15:40 | ADVANCE CARE PLANNING NOTE ---
Advance Care Planning - Planning Encounter Date: 08/26/19 Time: 15:05 Purpose: To establish CODE STATUS if a cardiac arrest occurs. She is already on the vent. Parties in Attendance: I spoke to the by phone. Decisional Capacity of the Patient: She is sedated on the vent, cannot communicate or make decisions. - Diagnosis for Encounter (1) Pneumonia due to COVID-19 virus Summary: She was admitted today with resp failure, hypoxia, wanted to be on the vent. Her clinical status is also consistent with septic and hypovolemic shock. - Encounter Subjective/Patient's Story: This is a 6-year-old patient with severe COPD, who continues to smoke, is on home oxygen at night, uses 2 types of inhalers. She started to get a cough and congestion 5 days ago, the next day had diarrhea, then started to get weaker every day and oxygen saturations decreasing every day. The who is a Physician's Glass Mechanic, recently retired, was able to adjust her oxygen settings up. She was getting too weak to even stand, he was feeding her by putting fluids into a syringe and into her mouth. This morning the patient awoke and said that she was "drowning" and wanted to go to the hospital. She was found to have hypotension and hypoxemia and was offered to be intubated and ventilated and she wanted this. The tells me that she does not want to have CPR or defibrillation. Objective/Medical Story: Presentation as above. She is currently on maximal dose levophed drip, saline by IV, maximum ventilator settings at 6 ml/kg, with resp rate of 20 and 100% FiO2 with 5 of PEEP. Despite this she has yellow frothy secretions in the ET tube and has saturations of 94%. I told the that she is in critical condition and may not survive this hospitalization. He requested that the nurses call him on his cell phone if she takes a turn for the worse or is imminently dying. Goals of Care: Continue aggressive management for the COVID pneumonia, her ARDS, septic shock with medical management and the ventilator. Do not perform CPR or defibrillate if she has a cardiac arrest/CODE BLUE. Plan: Order DNR, continue DNI, the may visit at bedside despite the visiting restrictions, I communicated that to the Marine Insulator, I communicated the cell phone of request to her RN. Code Status: Do Not Attempt Resuscitation Time spent on advance care plannin min
[2019-08-26] MEDS ORDERED: SODIUM BICARBONATE 100 MEQ in DEXTROSE 5% 1,000 ML IV SCH (16:00)
[2019-08-26] MEDS ORDERED: AMINOPHYLLINE IV ONE (16:00)
[2019-08-26] MEDS ORDERED: DOBUTamine 500 MG/250 ML 500 MG/250 ML BAG IV SCH ×2 (16:00→22:00)
[2019-08-26] MEDS ORDERED: SODIUM CHLORIDE 0.9% IV ONE (16:00)
[2019-08-26] MEDS: DEXTROSE 5%-0.9% NACL 1,000 ML IV SCH ×2 (16:10→21:15)
[2019-08-26] MEDS ORDERED: SODIUM BICARBONATE ABBOJECT 50 MEQ/50 ML SYRINGE IVP ONE (16:17)
--- NOTE | 2019-08-26 16:28 | HISTORY & PHYSICAL EXAMINATION ---
DATE OF SERVICE: 08/26/2019 Physician: Lisbeth Batista MD HISTORY OF PRESENT ILLNESS: This is a 69-year-old white female with a history of severe COPD. She uses 2 inhalers. She is on home oxygen, mostly at night at 2 liters. She continues to smoke. She also has a history of hypertension. She lives with her who is a recently retired physician's certified ophthalmic assistant. The entire history is obtained from the and chart review, since the patient is sedated. The patient started to develop upper respiratory symptoms of cough and shortness of breath 5 days ago. She then started to get diarrhea for 1 day. Her saturation started to go down daily after that and the was able to adjust her home O2 setting upward. Earlier this week, she did the drive-through for COVID testing and she is known COVID positive already. She got very weak and started to have poor p.o. intake 3 days ago and he started feeding her by putting liquid nutrition into a syringe and feeding her that way. He checked with her PCP regarding other management and was told to continue with supportive care at home. This morning, she awoke and saturations were documented at 70% in the home and she stated that she was "drowning" and wanted to come to the emergency room. In the ER, she was found to have significant desaturations and she was hypotensive. She was offered the ventilator. The states that he knows she would not want defibrillation or CPR, but she wanted to try the ventilator if this would help reverse her problem. PAST MEDICAL HISTORY: 1. COPD, on home oxygen. 2. Hypertension. 3. Diabetes, on metformin. 4. Hyperlipidemia. ALLERGIES: NITROFURANTOIN, TIOTROPIUM, ALBUTEROL. MEDICATIONS AT HOME: 1. Escitalopram 20 mg daily. 2. Aspirin 81 mg daily. 3. inhaler once a day. 4. Alprazolam 0.5 mg daily. 5. Metformin 500 mg daily. 6. HCTZ 25 mg daily. 7. Omeprazole 40 mg daily. 8. Lovastatin 10 mg daily. 9. Losartan 100 mg daily. 10. Xopenex inhaler 2 puffs p.r.n. FAMILY HISTORY: No inherited diseases. SOCIAL HISTORY: The patient lives with her . She is continuing to smoke daily, unknown amount. There is no significant alcohol intake history. There is no illicit drug use history. The is a retired physician certified ophthalmic assistant. PHYSICAL EXAMINATION: GENERAL: Intubated and sedated female. VITAL SIGNS: Blood pressure is running 70-90 systolic on a Levophed drip and saline dripped. Heart rate is in the 80s in sinus rhythm. She is being ventilated. HEENT: Shows ET tube and NG tube in place. NECK: Positive JVD. CHEST: Diffuse crackles and extensive rhonchi. ABDOMEN: Soft. EXTREMITIES: No clubbing, cyanosis or edema. NEUROLOGIC: Sedated because of being on the vent. LABORATORY DATA: Sodium 131, potassium 3.2, BUN 99, creatinine 2.9, glucose 103, magnesium 2.3. BNP 115. Troponin high sensitivity 24. Lipase normal. Liver tests normal. White blood count 5.6 with a left shift producing bandemia, hemoglobin 16, platelet count 295. Her first blood gas was a pH of 7.15, pCO2 of 58 and pO2 of 65. D-dimer was greater than 1050. Urinalysis did show moderate bacteria and positive nitrites. Nasal screen is negative for MRSA. Chest x-ray shows bilateral patchy infiltrates consistent with atypical pneumonia and may be ARDS. EKG: Sinus tachycardia, occasional PVCs, low voltage throughout the entire EKG and somewhat flattened T waves in leads aVL and V6. There is no old EKG available for comparison. IMPRESSION: 1. Shock, which is probably septic shock and hypovolemic shock. 2. Acute respiratory distress syndrome on chest x-ray with severe hypoxia. 3. COVID pneumonia. 4. Dehydration. 5. Acute kidney injury. 6. Urinary tract infection. 7. Diabetes mellitus. 8. Decompensated Chronic obstructive pulmonary disease exacerbation. 9. Hyponatremia. 10. Hypokalemia. 11. Tobacco use. PLAN: Admit the patient to the ICU. Follow protocol for isolation. Send blood, urine and sputum cultures if possible. Continue with aggressive crystalloid volume repletion and pressor support. Obtain a Lactic Acid level regarding septic shock. Start CVP line and arterial line. Continue with ventilator support, follow her ABG for adjustment of settings. Use Precedex and Versed ICU protocol sedation while on the ventilator. Since inline nebulizers are not advised in the setting of COVID or ARDS, will plan peripheral IV aminophylline for her bronchodilation. Steroids will also be avoided. Place ng tube, order feeding by Leather Tacker. Start empiric treatment for community acquired pneumonia with Zithromax iv and Ceftriaxone iv, which will also treat the possible UTI. Start empiric Hydroxychloroquine per ng tube. Start POC glu fingerstick checks for a Diabetic that is NPO. Start a sliding scale for Insulin coverage, hold po Metformin. Hold all po meds while intubated and hypotensive. Given her marked hypotension and high D-dimer which is predictive of ARDS if >1000, I informed the that she is in critical condition and may not survive the next 24 hours. Therefore, he may be allowed to be at bedside, with appropriate precautions, despite the current visitor restrictions during the pandemic. CODE STATUS: DO NOT RESUSCITATE as far as CODE BLUE or cardiac arrest. DEEP VENOUS THROMBOSIS: PROPHYLAXIS: SCDs. ATTESTATION: The patient is expected to be discharged or transferred to another facility within 96 hours: Yes. TD: 08/26/2019 16:10 MICAELA
[2019-08-26 18:12] LABS: ABG PCO2 49 mmHg (34-45); ABG PH 7.21 (7.35-7.45); ABG PO2 82 mmHg (80-100); ABG TCO2 20.5 MMOL/L (21.0-29.0)
[2019-08-26 18:13] LABS: ABG OXYGEN SATURATION 95 % (94-98)
[2019-08-26] MEDS: SODIUM CHLORIDE FLUSH 0.9% 10 ML SYRINGE IVP SCH ×2 (18:18→21:17)
[2019-08-26] MEDS ORDERED: VASOPRESSIN 20 UNIT/ML VIAL ONE (20:49)
[2019-08-26] MEDS ORDERED: VANCOMYCIN 1 GM VIAL ONE (20:57)
[2019-08-26] MEDS ORDERED: SODIUM CHLORIDE 0.9% 500 ML ONE (20:59)
[2019-08-26] MEDS ORDERED: SODIUM CHLORIDE 0.9% IV SCH (21:00)
[2019-08-26] MEDS ORDERED: PANTOPRAZOLE 40 MG VIAL IVP SCH (21:00)
[2019-08-26] MEDS ORDERED: AMINOPHYLLINE IV SCH (21:00)
[2019-08-26] MEDS: SODIUM CHLORIDE FLUSH 0.9% 10 ML SYRINGE IVP PRN (21:25)
[2019-08-26] MEDS ORDERED: VASOPRESSIN 20 UNIT in DEXTROSE 5% 99 ML IV SCH ×2 (22:00→23:00)
[2019-08-26] MEDS ORDERED: VANCOMYCIN PER PHARMACY 100 GM in SODIUM CHLORIDE 0.9% 250 ML IV SCH (22:00)
[2019-08-26] MEDS ORDERED: VANCOMYCIN INJ 2 GM in SODIUM CHLORIDE 0.9% 500 ML IV ONE (22:00)
--- NOTE | 2019-08-26 22:55 | PROVIDER PROGRESS NOTE ---
Nursing Manager Note - Nursing Manager Note Nursing Manager Note: Was called to patient's room because her SBP was in the 60's with a MAP of 47 She was maxed on levophed and was on dobutamine at 2.5. She was also receiving IV fuids at 175mls/hr He blood culture had indicated gram positive cocci in pairs growing. She was on an FiO2 of 100% with PEEP of 10 but her O2Sat was 87%. She had copious amounts of secretions Vancomycin 2gX1 was ordered. Pharmacy to take over dosing. Vasopressin was added. The patient was subsequently maxed on vasopressin as well Her vitals at this point are SBP 96/44(MAP 63), P113, O2Sat 87% on FiO2 of 100% and PEEP of 7 Patient's was at bedside. He is fully aware of how critical her condition is. I pointed out that the fact that she is on 3 pressors is very concerning. She is likely to take a turn for the worse. Chances that she will not last the night are very high. He expressed understa nding. If patient's oxygenation should continue to drop further, I plan to discuss with her about switching to comfort measures only. A total of 30 minutes of critical care time was spent caring for this patient.
[2019-08-27] MEDS: INSULIN REGULAR HUMAN 300 UNIT/3 ML VIAL SUBQ SCH (00:05)
[2019-08-27] MEDS ORDERED: MIDAZOLAM 50 MG/10 ML VIAL ONE (00:39)
[2019-08-27] MEDS: MIDAZOLAM DRIP 50 MG/100 ML BAG IV SCH (00:59)
[2019-08-27 01:16] VITALS: BP 100/49
[2019-08-27] MEDS ORDERED: MAGNESIUM SULFATE 2 GRAM 2 GM/50 ML BAG IV ONE (01:41)
[2019-08-27] MEDS ORDERED: diltiaZEM INJ 5 MG/ML VIAL IVP ONE ×2 (01:50→01:56)
[2019-08-27] MEDS ORDERED: diltiaZEM INJ 5 MG/ML VIAL ONE (01:51)
[2019-08-27] MEDS: SODIUM CHLORIDE FLUSH 0.9% 10 ML SYRINGE IVP PRN ×2 (01:52→01:56)
[2019-08-27] MEDS ORDERED: POTASSIUM CHLOR 10 MEQ/100 ML 10 MEQ/100 ML BAG IV SCH (02:00)
[2019-08-27] MEDS ORDERED: SODIUM CHLORIDE 0.9% 1,000 ML IV ONE (02:03)
[2019-08-27] MEDS ORDERED: VASOPRESSIN 20 UNIT/ML VIAL ONE (02:25)
[2019-08-27] MEDS ORDERED: AMIODARONE 450 MG/9 ML VIAL IV STA (02:52)
[2019-08-27] MEDS ORDERED: AMIODARONE 150 MG/3 ML VIAL ONE (02:58)
[2019-08-27] MEDS ORDERED: DILTIAZEM 125 MG in DEXTROSE 5% 100 ML IV SCH (03:00)
[2019-08-27] MEDS ORDERED: SCOPOLAMINE PATCH TOP ONE (03:29)
[2019-08-27] MEDS ORDERED: SCOPOLAMINE PATCH TOP SCH (04:00)
--- NOTE | 2019-08-27 04:36 | PROVIDER PROGRESS NOTE ---
Pipe Roller Note - Pipe Roller Note Pipe Roller Note: Around 01:30 am on 08/27/2019 I was notified that the patient's pulse was sustaining in the 180's. Initially it was sinus tachycardia but then became atrial fibrillation. Diltiazem 10mg IV was attempted twice. The heart rate would decrease to 120's-130's each time but then readily increase to 160's. Diltiazem drip was initiated and maxed with no change in her heart rate. At this point levophed, vasopressin and dobutamine had been maxed out. Her SBP was not higher than 90. Her oxygenation was not greater than 80% despite an FiO2 0f 100% and PEEP of 10. I called her and presented the situation to him. He expressed understanding of it gravity. I asked him about considering comfort measures. I explained that it would entail stopping all therapeutic measures and only focusing towards comfort measures. At such the pressors and vent support will be discontinued. He agreed to comfort measures. We agreed to initiate the measures after he arrived the hospital. He arrived around 3:00pm. All therapeutic measures were discontinued shortly afterward. I was notified that the patient was unresponsive shortly after discontinuation of therapeutic measures. On examination patient was nonresponsive to tactile or verbal stimuli. Pupils were fixed, dilated and unreactive to light Carotid and radial pulses were absent bilaterally. There were no spontaneous breath sounds. Heart and breath sounds were absent on auscultation. The patient at 03:45am on 08/27/2019 and was pronounced then. Her was at bedside.
--- NOTE | 2019-08-27 04:39 | DISCHARGE SUMMARY ---
Discharge Summary Admit Date: 08/26/19 Discharge Date: 08/27/19 Discharging Provider: Maureen Villasenor Primary Care Provider: Esau Toro Code Status: Attempt Resuscitation Condition at Discharge: Critical Discharge Disposition: 20 Discharge Facility Name: [facility] - DIAGNOSES Admission Diagnoses: 1. Septic shock 2. COVID19 pneumonia 3. ARDS 4. COPD exacerbation 5. AKILAH 6. UTI 7. DM II 8. Tobacco Use 9. Hypokalemia 10. Dehydration Discharge Diagnoses with Status of Each Condition: 1. Septic shock: Patient 2. COVID19 pneumonia: Patient 3. ARDS: Patient 4. COPD exacerbation: Patient 5. AKILAH: Patient 6. UTI: Patient 7. DM II: Patient 8. Tobacco Use: Patient 9. Hypokalemia: Patient 10. Dehydration: Patient - HPI History of Present Illness: Patient was sedated at the time of admission HPI thus history was provided by her . According to him patient started experiencing respiratory symptoms of cough and dyspnea 5 days prior to admission. She started having diarrhea 1 day prior to admission. She had been experiencing oor oral intake for 3 days. On the day of admission her O2Sats at home was 70%. She complained of feeling like she was drowning and asked to be taken to the ED. She was found to be significantly hypoxic and hypotensive upon presentation to the ED. He said she would want to be intubated if it would help her ondition, but she would not want defibrillation or CPR. Earlier in the week she went through the drive-through for COVID testing and she tested positive. - HOSPITAL COURSE Hospital Course: She was admitted to the ICU sedated on versed and precedex and intubated. She had central and arterial lines as well as NG tubes placed. She was started on dobutamine and levophed for blood pressure support and she received IV fluids. She also received aminophylline for bronchodilation. Blood cultures were drawn which gave positive results within 12 hours growing Streptococcus. She was placed on Azithromycin, hydroxychloroquine and rocephin Around 08:00 pm on 08/26/2019, I was called to patient's room because her SBP was in the 60's with a MAP of 47 She was maxed on levophed and was on dobutamine at 2.5. She was also receiving IV fuids at 175mls/hr She was on an FiO2 of 100% with PEEP of 10 but her O2Sat was 87%. She had copious amounts of secretions Vancomycin 2gX1 was ordered. Pharmacy to take over dosing. Vasopressin was added. The patient was subsequently maxed on vasopressin as well Her vitals at this point are SBP 96/44(MAP 63), P113, O2Sat 87% on FiO2 of 100% and PEEP of 7 Patient's was at bedside. He was fully aware of how critical her condition was. I pointed out that the fact that she was on 3 pressors was very concerning. She was likely to take a turn for the worse. Chances that she will not last the night were very high. He expressed understand ing. Around 01:30 am on 08/27/2019 I was notified that the patient's pulse was sustaining in the 180's. Initially it was sinus tachycardia but then became atrial fibrillation. Diltiazem 10mg IV was attempted twice. The heart rate would decrease to 120's-130's each time but then readily increase to 160's. Diltiazem drip was initiated and maxed with no change in her heart rate. At this point levophed, vasopressin and dobutamine had been maxed out. Her SBP was not higher than 90. Her oxygenation was not greater than 80% despite an FiO2 0f 100% and PEEP of 10. I called her and presented the situation to him. He again expressed understanding of it gravity. I asked him about considering comfort measures. I explained that it would entail stopping all therapeutic measures and only focusing towards keeping the patient comfortable. At such the pressors and vent support will be discontinued. He agreed to comfort measures. We agreed to initiate the measures after he arrived the hospital. He arrived around 3:00pm. All therapeutic measures were discontinued shortly afterward. I was notified that the patient was unresponsive shortly after discontinuation of therapeutic measures. On examination patient was non-responsive to tactile or verbal stimuli. Pupils were fixed, dilated and unreactive to light. Carotid and radial pulses were absent bilaterally. There were no spontaneous breath sounds. Heart and breath sounds were absent on auscultation. The patient at 03:45am on 08/27/2019 and was pronounced then. Her was at bedside. He requested that [facility] be contacted for her remains. - ALLERGIES Allergies/Adverse Reactions: Allergies Allergy/AdvReac Type Severity Reaction Status Date / Time nitrofurantoin Allergy Rash Verified 08/26/19 08:53 [From Macrodantin] tiotropium Allergy Rash Verified 08/26/19 08:53 [From Spiriva with HandiHaler] albuterol AdvReac Dizziness Verified 08/26/19 11:01 - MEDICATIONS Home Medications: Ambulatory Orders Medication Instructions Recorded Confirmed Aspirin 81 mg PO DAILY 04/13/18 08/26/19 Escitalopram Oxalate 20 mg PO DAILY 04/13/18 08/26/19 Levalbuterol [Xopenex] 200 puffs INH PRN PRN 04/13/18 08/26/19 Losartan Potassium 100 mg PO DAILY 04/13/18 08/26/19 Lovastatin 10 mg PO DAILY 04/13/18 08/26/19 hydroCHLOROthiazide 25 mg PO DAILY 04/13/18 08/26/19 [Hydrochlorothiazide] metFORMIN [Glucophage] 500 mg PO DAILY 04/13/18 08/26/19 ALPRAZolam [Alprazolam] 0.5 mg PO DAILY 10/04/18 08/26/19 Aclidinium [place] [Tudorza 400 mcg IH DAILY 10/04/18 08/26/19 Pressair] Omeprazole 40 mg PO DAILY 10/04/18 08/26/19 - LABS Result Diagrams: 08/26/19 08:15 08/26/19 14:02 - SEPSIS Sepsis Criteria: Suspected or Documented, Recorded Heart Rate greater than 90 bpm, Recorded Respiratory Rate greater than 20, Respiratory: Increasing oxygen requirements, WRAPPER SORTER: altered consciousness (unrelated to primary neuro pathology), SBP drop more than 40mHg, MAP less than 65 mmHg, SBP less than 90 mmHg, Renal: urine output less than 0.5ml/kg/hr for 2 hours or creatinine gr, Metabolic: lactate > 2 mmol/L - TIME SPENT Time Spent in Discharge (Minutes): 45
--- NOTE | 2019-08-27 04:40 | Discharge Plan ---
Discharge Plan Problem Reviewed?: Yes Disposition: 20 Condition: Critical No Smoking: If you smoke, Please STOP! Call for help.
[2019-08-27] MEDS ORDERED: HYDROXYCHLOROQUINE 200 MG TABLET PO SCH (09:00)
[2019-08-27] MEDS ORDERED: AZITHROMYCIN INJ 500 MG in SODIUM CHLORIDE 0.9% 250 ML IV SCH (09:00)
== END 2019-08-27 03:45 | disposition expired | DRG 871 ==
LOC: ED 07:49 → ICU 10:45
PROVIDERS: ADMIT Internal Medicine; ATTEND Internal Medicine
PROC: 5A1935Z Respiratory Ventilation, Less than 24 Consecutive Hours (ICD-10-PCS; principal; 2019-08-26)
PROC: 02HV33Z Insertion of Infusion Device into Superior Vena Cava, Percutaneous Approach (ICD-10-PCS; 2019-08-26)
PROC: 04HY32Z Insertion of Monitoring Device into Lower Artery, Percutaneous Approach (ICD-10-PCS; 2019-08-26)
PROC: 4A133B1 Monitoring of Arterial Pressure, Peripheral, Percutaneous Approach (ICD-10-PCS; 2019-08-26)
DX: A40.9 Streptococcal sepsis, unspecified (principal); R09.02 Hypoxemia; R65.21 Severe sepsis with septic shock; J12.89 Other viral pneumonia; J80 Acute respiratory distress syndrome; J44.0 Chronic obstructive pulmonary disease with (acute) lower respiratory infection; I95.9 Hypotension, unspecified; J44.1 Chronic obstructive pulmonary disease with (acute) exacerbation; N17.9 Acute kidney failure, unspecified; E78.00 Pure hypercholesterolemia, unspecified; N39.0 Urinary tract infection, site not specified; E87.1 Hypo-osmolality and hyponatremia; B97.29 Other coronavirus as the cause of diseases classified elsewhere; E87.6 Hypokalemia; E86.0 Dehydration; F17.210 Nicotine dependence, cigarettes, uncomplicated; I10 Essential (primary) hypertension; E11.9 Type 2 diabetes mellitus without complications; E78.5 Hyperlipidemia, unspecified; K21.9 Gastro-esophageal reflux disease without esophagitis; F32.9 Major depressive disorder, single episode, unspecified; F41.0 Panic disorder [episodic paroxysmal anxiety]; H54.7 Unspecified visual loss; M19.90 Unspecified osteoarthritis, unspecified site; Z79.51 Long term (current) use of inhaled steroids; Z79.84 Long term (current) use of oral hypoglycemic drugs; Z79.82 Long term (current) use of aspirin; Z79.899 Other long term (current) drug therapy; I48.91 Unspecified atrial fibrillation; Z66 Do not resuscitate
CPT/HCPCS: 31500; 36415; 36600; 51702; 71045; 74018; 80048; 80053; 81001; 82803; 83605; 83690; 83735; 83880; 84484; 85025; 85379; 87040; 87086; 87150; 93005; 94002; 94003; 96361; 96365; 96375; 96376; 99291; A9270; J0282; J0330; J1250; J1815; J3370; J3490; 81003; 83036; 84100; 87077; 87181; 94770